=== PATIENT | female | born 1950 | race African-American/Black ===

== ENCOUNTER 2018-01-14 17:38 | Inpatient (IN) | payer MEDICARE, OTHER ==
[~2018-01-14 17:38] MED LIST: Heparin 1,000 UNITS/ML VIAL ONE; Heparin 10,000 UNITS/ 10 ML VIAL ONE
[2018-01-14 18:07] LABS: CO2 Tension 31.4 mmHg (35.0-45.0); pH, Arterial 7.35 (7.35-7.45)
[2018-01-14 18:07] LABS: Base Excess-Venous -8.5 mmol/L (0 (+/- 2.5)); CO2 Tension (PvCO2) 39.9 mmHg (41.0-51.0); Calcium, Ionized 1.08 mmol/L (1.12-1.32); Hemoglobin - Calc 13.9 g/dL (12.0-18.0); Lactate 3.13 mmol/L (0.50-2.20); O2 Tension (PvO2) 53.1 mmHg (35.0-45.0); Potassium 6.7 mmol/L (3.4-4.7); T. Carbon Dioxide 19.2 mmol/L (1.0-85.0); pH (Venous) 7.263 (7.35-7.45); vO2 Saturation-calc 82.2 % (94-98)
[2018-01-14 18:08] LABS: Actual Bicarbonate (HCO3a) 17.1 mEq/L (22-26); Base Excess (BEa) -7.5 mEq/L (0 (+/-) 2.5); Carboxyhemoglobin (COHb) 1.8 gm% (0.0-3.0); Hematocrit-ABG 38.5 % (36.0-47.0); Hemoglobin (Hb) 10.6 g/dL (12.0-16.0); O2 Tension (PaO2) 285.4 mmHg (80.0-100.0)
[2018-01-14 18:09] LABS: Analyzer IN Cardio ER; Calcium, Ionized 1.2 mmol/L (1.12-1.30); Potassium - ABG Lab 6.3 mmol/L (3.70-5.30); Puncture Site LRA
--- NOTE | 2018-01-14 18:53 | CT ---
CT BRAIN WITHOUT CONTRAS: 01/14/18 HISTORY: Altered mental status, stage IV lung cancer. FINDINGS: Comparison is made with the exam of 09/16/15. No evidence of acute infarct, hemorrhage, midline shift or abnormal extra-axial fluid collections are seen. The ventricular size is normal and the basilar cisterns patent. There is a small focal area of decreased attenuation in the posterior aspect of the right frontal lobe close to the vertex which wa s not seen on the previous study. The possibility of this demonstrating a metastatic focus cannot be excluded. The bony calvarium is intact. IMPRESSION: 1. No CT evidence of acute intracranial process. 2. Further evaluation with MRI of the brain with and without IV contrast would be helpful to joana luate for metastatic disease. POS: [facility]
[2018-01-14] MEDS ORDERED: Fentanyl 100 MCG/2 ML VIAL ONE (19:27)
[2018-01-14] MEDS ORDERED: Midazolam HCl 5 mg/ml Vial ONE (19:30)
[2018-01-14] MEDS ORDERED: Albuterol Sulfate 2.5 mg/3 ml Neb ONE ×2 (20:05→20:09)
--- NOTE | 2018-01-14 20:12 | PDOC.FPRHP ---
- History of Present Illness Chief Complaint: Respiratory Failure History of Present Illness: 67 yo female presents from transferring from an outside facility. She was intubated at the outside facility and has been unconscious since that time. Family is in the room from out of state and can't provide much history. They state she was weak, but able to have a conversation yesterday. She never complained of pain, but did mention yesterday she began being more SOB. Today, her SOB acutely worsened and she was intubated and sent here. No other history is able to be obtained. ED Course: Heparin Drip Levophed Drip D50W Insulin Fentanyl Versed Rocephin - Allergies/Adverse Reactions Allergies Allergy/AdvReac Type Severity Reaction Status Date / Time No Known Allergies Allergy Unverified 01/14/18 20:32 - Home Medications Comments: Patient is not able to provide medication history. Family will be bringing updated medication list from home. Will be completed in future. - History PMHx: Glaucoma, Cataracts, HTN, Stage IV Breast Cancer PSHx: Cholecystectomy, Hysterectomy, Mastectomy FHx: Non contributory Social: No alcohol, Tobacco, or Drug history - Review of Systems ROS unobtainable: due to endotracheal tube Respiratory: reports: shortness of breath - Vital signs BP: [81/63] HR: [96] RR: [14] Tmax: [99.2] Pox: [98]% on [Vent] Wt: [120 kg] - Physical Exam -Constitutional: Intubated. Unconscious Neck: trachea midline Heart: RRR -Heart: Anasarca present & 2+ pitting edema bilaterally up to knees. -Lungs: Intubated on ventilator Abdomen: soft, non-tender, bowel sounds present, no masses/distention Musculoskeletal: normal structure -Neurological: Unconscious, Non-responsive. no withdrawl to pain. + cough, gag reflux. Skin: no rash/lesions -Psychiatric: Intubated and Unconscious FMR H&P: Results - Labs Result Diagrams: 01/14/18 20:15 01/14/18 20:15 Lab results: ABG pH 7.35 (7.35-7.45) 01/14/18 17:55 ABG pCO2 31.4 mmHg (35.0-45.0) L 01/14/18 17:55 ABG pO2 285.4 mmHg (80.0-100.0) H 01/14/18 17:55 VBG pCO2 39.9 mmHg (41.0-51.0) L 01/14/18 18:03 VBG pO2 53.1 mmHg (35.0-45.0) H 01/14/18 18:03 - EKG Interpretation EKG: Sinus Tachycardia FMR H&P: A/P - Problem List (1) Acute respiratory failure with hypoxia Current Visit: Yes Status: Acute Code(s): J96.01 - ACUTE RESPIRATORY FAILURE WITH HYPOXIA (2) Encephalopathy acute Current Visit: Yes Status: Acute Code(s): G93.40 - ENCEPHALOPATHY, UNSPECIFIED (3) Acute renal failure Current Visit: Yes Status: Acute (4) Hyperkalemia Current Visit: Yes Status: Acute Code(s): E87.5 - HYPERKALEMIA (5) Elevated bilirubin Current Visit: Yes Status: Acute Code(s): R17 - UNSPECIFIED JAUNDICE (6) Shock liver Current Visit: Yes Status: Acute Code(s): K72.00 - ACUTE AND SUBACUTE HEPATIC FAILURE WITHOUT COMA (7) Lactic acidosis Current Visit: Yes Status: Acute Code(s): E87.2 - ACIDOSIS (8) Pulmonary embolism Current Visit: Yes Status: Acute Code(s): I26.99 - OTHER PULMONARY EMBOLISM WITHOUT ACUTE COR PULMONALE (9) Stage IV carcinoma of breast Current Visit: Yes Status: Acute Code(s): C50.919 - MALIGNANT NEOPLASM OF UNSP SITE OF UNSPECIFIED FEMALE BREAST (10) Septic shock Current Visit: Yes Status: Acute Code(s): A41.9 - SEPSIS, UNSPECIFIED ORGANISM; R65.21 - SEVERE SEPSIS WITH SEPTIC SHOCK (11) Normocytic anemia Current Visit: Yes Status: Acute Code(s): D64.9 - ANEMIA, UNSPECIFIED - Plan (1) Acute respiratory failure with hypoxia - Intubated on ventilator Rate 12, Vt 500, O2 100% PEEP 8 - Consulted Pulm appreciate recs - ABG in AM - ET care (2) Encephalopathy acute - Unknown etiology - Continue Supportive care (3) Acute renal failure - Dr. Rodriguez, Nephro, consulted appreciate recs - Emergent Dialysis planned tonight (4) Hyperkalemia - Emergent Dialysis - Insulin & D50w given in ER - Monitor CMP (5) Elevated bilirubin - Likely 2/2 to Shock liver - Monitor CMP (6) Shock liver - 2/2 to Septic shock - Monitor CMP (7) Lactic acidosis - initial 3.3 - unable to initiate IVF at this time due to volume status - Repeat pending (8) Pulmonary embolism - Suspected from History - Heparin protocol (9) Stage IV carcinoma of breast - Request records from Dr. Luna [phone] (10) Septic shock - ICU admission - Vanc and Zosyn 01/14 - Pharmacy to dose antibiotics - Levophed drip - Hold IVF until fluid status improves (11) Normocytic anemia - Monitor CBC CODE STATUS: FULL CODE Disposition: Guarded, Will admit to ICU. FMR H&P: Upper Level - Plan Date/Time: 01/14/182009 Vane Goodwin, PGY3, have evaluated this patient and agree with findings/plan as outlined by internet security specialist resident. Pertinent changes/additions are listed here. This is a 67yo AAF w/ PMH Stage IV breast cancer with mets to lungs, presents w / Acute hypoxic respiratory failure s/p intubation in outside ER and transferred here. PE: Gen: Patient is not responsive, not currently on sedation, Anasarca HEENT: intubated. CV: Sinus Tachycardic, + JVD. Resp: On ventilator. Course breath sounds. Ext: +2 pitting edema extremities bilaterally UE and LE Neuro: Non-responsive. no withdrawl to pain. + cough, gag reflux. A/P: 1) Acute hypoxic respiratory failure - Pulmonology consulted. Currently on ventilator. Possibly 2/2 pulmonary embolism, however unable to CTA chest due to ARF. Will treat with Heparin ggt. Consider CTA if kidney function improves. 2) Stage IV Breast Cancer with mets to lungs - possible mets to brain. Will AFR - Dr. Rodriguez consulted and will perform emergent dialysis 3) Lactic acidosis - repeat in am. Fluids 4) Hyperkalemia - given Albuterol, D5 IVP, Novolin 10U IVP, 1amp Sodium Bicarb, Fentanyl 100mcg, Versed 5mg IVP. Dr. Rodriguez consulted. 5) Leukocytosis - Vanc, Zosyn, f/u with CBC in am. 6) Normocytic anemia - f/u with CBC in am. FOBT, iron studies in am. 7) Metabolic acidosis - Repeat CMP in am. 8) Elevated liver enzymes - Repeat CMP. 9) Elevated cardiac enzymes - repeat CE x3. on heparin ggt. Repeat EKG in am. 10) Septic shock - fluids, Vanc, Zosyn. Levophed. 11) Encephalopathy - Unsure of etiology. F/u with MRI in am if can tolerate it. Very poor prognosis. Attending Addendum - Attending Addendum Date/Time: 01/14/183 I personally evaluated the patient and discussed the management with Dr. Garces I agree with the History, Examination, Assessment and Plan documented above with any addition or exceptions noted below. 67 yo AAF with known stage 4 lung carcinoma brought to [facility] ER s/p respiratory arrest transferred here intubated unresponsive non sedated with multi-organ failure on levophed for diaylsis tonight. Exam marked anasarca,no purposeful movement, pupils sluggish occasional coughing and tolerating vent without sedation. Prognosis grave, family aware appreciate Critical Care and Nephrology consultation for management.
[2018-01-14] MEDS ORDERED: Dextrose 50% Abboject 50 ML SYRINGE ONE ×2 (20:26→20:29)
[2018-01-14] MEDS ORDERED: Insulin Regular 300 UNITS/3 ML VIAL ONE (20:26)
[2018-01-14] MEDS ORDERED: Calcium Chloride 1 GM/10 ML Abboject SYRINGE ONE ×2 (20:26→20:51)
[2018-01-14 20:33] LABS: INR-International Normal Ratio 1.4; PTT 27.2 SEC (22.9-36.1); Prothrombin Time 17.5 SEC (12.0-14.7)
[2018-01-14] MEDS ORDERED: Norepinephrine 8 MG in Sodium Chloride 0.9% 250 ML 250 ML IVPB PRN ×2 (20:33→21:19)
[2018-01-14 20:39] LABS: Hemoglobin 10.2 g/dL (12.0-16.0); Mean Corpuscular HGB CONC 32.4 g/dL (32.0-36.0); Mean Corpuscular Hemoglobin 28.2 pg (27.0-31.0); Mean Corpuscular Volume 87.1 fl (81.0-99.0); Mean Platelet Volume 7.7 fL (7.4-10.4); Platelet Count 384 thou/uL (130-400); RBC Distribution Width 20.5 % (11.5-14.5); Red Blood Cell (RBC) Count 3.63 mill/uL (4.20-5.40); White Blood Cell (WBC) Count 16.3 thou/uL (4.8-10.8)
[2018-01-14] MEDS ORDERED: Heparin 10,000 UNITS/ 10 ML VIAL SLOW IVP SCH ×2 (20:45→21:19)
[2018-01-14] MEDS ORDERED: Heparin 25,000 units/D5W 500 ML IV SCH (20:45)
[2018-01-14 20:49] LABS: ALT (SGPT) 97 U/L (8-55); AST (SGOT) 332 U/L (5-34); Albumin 2.7 g/dL (3.4-4.8); Alkaline Phosphatase 1448 U/L (40-150); Anion Gap 25 mmol/L (10-20); Bilirubin, Total 5.1 mg/dL (0.2-1.2); Calc. Creatinine Clearance 0 mL/min (70-130); Calcium 8.8 mg/dL (7.8-10.44); Carbon Dioxide 17 mmol/L (23-31); Chloride 99 mmol/L (98-107); Estimated GFR-MDRD 8; Globulin 3.6 g/dL (2.4-3.5); Glucose 78 mg/dL (80-115); Potassium 6.5 mmol/L (3.5-5.1); Protein, Total 6.3 g/dL (6.0-8.3); Sodium 134 mmol/L (136-145)
[2018-01-14] MEDS ORDERED: Heparin 25,000 units/D5W 500 ML ONE (20:50)
[2018-01-14] MEDS ORDERED: Heparin 1,000 UNITS/ML VIAL ONE (20:53)
[2018-01-14] MEDS ORDERED: Heparin 5,000 UNITS/ML VIAL ONE (20:54)
[2018-01-14 21:00] LABS: BUN (Urea Nitrogen) 132 mg/dL (9.8-20.1); CKMB 5.3 ng/mL (0-6.6)
[2018-01-14] MEDS ORDERED: Ventilator Sedation Protocol 1 EACH FS SCH (21:19)
[2018-01-14] MEDS ORDERED: Ondansetron PF 4 MG/2 ML Vial IVP PRN (21:19)
[2018-01-14] MEDS ORDERED: Vancomycin HCl 1 GM in Premix Bag 1 BAG IVPB SCH (21:19)
[2018-01-14] MEDS ORDERED: fentaNYL Citrate/PF 2,000 MCG in Sodium Chloride 0.9% 60 ML IV SCH (21:24)
[2018-01-14] MEDS ORDERED: DISCONTINUE PREVIOUS NARCOTIC PAIN MEDICATIONS AND BENZODIAZEPINES FS SCH (21:24)
[2018-01-14] MEDS ORDERED: Fentanyl BOLUS 250 ML IVPB PRN (21:24)
[2018-01-14] MEDS ORDERED: Lorazepam 2 MG/ML VIAL SLOW IVP PRN (21:24)
[2018-01-14] MEDS ORDERED: Propofol BOLUS 1,000 MG/100 ML VIAL IV PRN (21:24)
[2018-01-14] MEDS ORDERED: Morphine 4 MG/ML VIAL SLOW IVP PRN (21:24)
[2018-01-14] MEDS ORDERED: Famotidine 40 MG/4 ML VIAL SLOW IVP SCH (21:30)
[2018-01-14 21:33] LABS: Anisocytosis SLIGHT = 6-15 cells (100X) (0-5/hpf); Eosinophils 1 % (0-10); Hypochromia SLIGHT = 6-15 cells (100X) (0-5/hpf); Lymphocytes 6 % (21-51); MDiff Complete? YES; Monocytes 4 % (0-10); Neutrophil 89 % (42-75); PLT Morphology Comment Appears Adequate
[2018-01-14] MEDS ORDERED: ZOSYN IVPB PRN ×2 (21:35→21:36)
[2018-01-14] MEDS ORDERED: VANC IVPB PRN ×2 (21:35→21:36)
[2018-01-14] MEDS ORDERED: Piperacillin/Tazobactam 2.25 GM in Sodium Chloride 0.9% 100 ML IVPB SCH ×2 (21:45→23:59)
[2018-01-14 22:59] LABS: Hemoglobin 10.3 g/dL (12.0-16.0); Platelet Count 387 thou/uL (130-400)
[2018-01-14 23:41] LABS: Lactic Acid 4.2 mmol/L (0.5-2.2)
--- NOTE | 2018-01-14 23:45 | PDOC.EVN ---
Event Note - Event Note Event Note: Family made joint decision to make patient a DNR. Patient's family members included a brother, sister, and nephew. Patient had previously signed a DNR form , but did not have the form totally completed and filed. They stated that her wishes were well known to the family. They have decided to continue treatment as is for now. They are willing to make treatment changes if her condition deteriorates. Order has been changed to DNR in computer. Her prognosis is guarded and she will continue to be monitored very closely.
[2018-01-15 00:16] LABS: Lactic Acid 2.7 mmol/L (0.5-2.2)
[2018-01-15 00:31] LABS: Troponin I 0.056 ng/mL (< 0.028)
--- NOTE | 2018-01-15 01:38 | CON ---
DATE OF CONSULTATION: 01/14/2018 SERVICE: Renal medicine. HISTORY OF PRESENT ILLNESS: Ms. Barnard is a 67-year-old black female who was initially seen at [facility] ER for mental status change. At that time , patient went into acute respiratory arrest. She was intubated and placed on ventilator support. She was found to be in acute kidney injury with hyperkalemia. Conservative management for the hyperkalemia had been done. She will be receiving D50 with insulin. In addition, I have ordered calcium gluconate. I would be doing an emergency dialysis on this patient. She had right opacification of the right lung field. Left lung was said to be clear. I did discuss the case with the family. A nephew and sister, they want to proceed with full treatment, which includes dialysis. REVIEW OF SYSTEMS: History of decreased appetite, decreased energy level. Positive for loss of consciousness. No fever or chills. Positive for shortness of breath, no diarrhea, no constipation. Appetite decreased, energy level is decreased. No abdominal pain. HOME MEDICATIONS: Based on the ER report from [facility] failed to show any current medications. This patient was previously on hospice. PAST MEDICAL HISTORY: 1. History of breast cancer with metastasis to the lungs. 2. History of hypertension?. PAST SURGICAL HISTORY: Includes, breast biopsy, eye surgery, status post cholecystectomy, status post mastectomy bilateral breast. SOCIAL HISTORY: Patient lives in [place]. She lives alone, not , no children. Previously smoked. No alcohol. Sedentary lifestyle. Previously on hospice, but this has been revoked by her sister and nephew. ALLERGIES: No known drug allergies. TRAUMA: None. IMMUNIZATIONS: Unknown. HOSPITALIZATIONS: Please see past medical history. FAMILY HISTORY: Noncontributory. PHYSICAL EXAMINATION: VITAL SIGNS: Blood pressure is 86/40 with a heart rate of 70, pulse ox is 100%. GENERAL: Patient is unresponsive, intubated on ventilator support. SKIN: Adequate turgor, morbidly obese. HEENT: She has pinkish conjunctivae, anicteric sclerae. NECK: No neck mass, no carotid bruits, no JVD. CHEST: No deformities. LUNGS: Decreased breath sounds, no wheezing, no crackles. HEART: Normal sinus rhythm. No murmur, no gallops or rubs. ABDOMEN: Globular, soft, nontender. EXTREMITIES: Positive for edema. NEUROLOGIC: Patient is unresponsive. LABORATORY: On 01/14/2018, white count 19.2, hemoglobin 11.1. Sodium 136, potassium 7.8, chloride 98, carbon dioxide 17, BUN 128, creatinine 6.71. AST 374, ALT 115, alkaline phosphatase 1605, albumin 2.9. Repeat potassium shows value of 6.7. Chest x-ray of 01/14/2018 showed opacification of the right lung. Left lung was reported as clear. CT scan of the brain 01/14/2018, no acute intracranial findings. ASSESSMENT AND PLAN: 1. Acute kidney injury with hyperkalemia, unclear etiology. The possibility of acute tubular necrosis remains with this patient. Due to the hyperkalemia and significant increase in the BUN and creatinine, my bias is to initiate dialysis. I did discuss with the family about proceeding dialysis and I agreed with this. We will do a 1.5-hour hemodialysis with this patient. Fluid removal only as tolerated by the patient. We will use a 1-0 potassium bath in view of the hyperkalemia. If needed, we can arrange for renal ultrasound in a.m. My plan is to again repeat the dialysis tomorrow for 2 -1/2 hours. 2. Hypotension, currently patient will be initiated on pressor support. Overall, prognosis remains poor. MTDD
[2018-01-15 02:33] LABS: Hep B Surf Ag NonReactive S/CO (NonReactive)
[2018-01-15 03:51] LABS: ALT (SGPT) 98 U/L (8-55); AST (SGOT) 355 U/L (5-34); Albumin 2.6 g/dL (3.4-4.8); Alkaline Phosphatase 1407 U/L (40-150); Anion Gap 20 mmol/L (10-20); BUN (Urea Nitrogen) 97 mg/dL (9.8-20.1); Bilirubin, Total 5.1 mg/dL (0.2-1.2); Calc. Creatinine Clearance 22 mL/min (70-130); Calcium 8.5 mg/dL (7.8-10.44); Carbon Dioxide 21 mmol/L (23-31); Chloride 102 mmol/L (98-107); Estimated GFR-MDRD 11; Globulin 3.8 g/dL (2.4-3.5); Glucose 124 mg/dL (80-115); Potassium 4.5 mmol/L (3.5-5.1); Protein, Total 6.4 g/dL (6.0-8.3); Sodium 138 mmol/L (136-145)
[2018-01-15] MEDS: Norepinephrine 8 MG in Sodium Chloride 0.9% 250 ML 250 ML IVPB PRN ×4 (03:53→21:33)
[2018-01-15 03:55] LABS: Troponin I 0.056 ng/mL (< 0.028)
[2018-01-15 04:14] LABS: Band 11 % (5-11); Hemoglobin 10.5 g/dL (12.0-16.0); Lymphocytes 4 % (21-51); MDiff Complete? YES; Mean Corpuscular HGB CONC 33.1 g/dL (32.0-36.0); Mean Corpuscular Hemoglobin 28.9 pg (27.0-31.0); Mean Corpuscular Volume 87.3 fl (81.0-99.0); Mean Platelet Volume 7.7 fL (7.4-10.4); Monocytes 4 % (0-10); Neutrophil 81 % (42-75); Platelet Count 402 thou/uL (130-400); RBC Distribution Width 20.9 % (11.5-14.5); Red Blood Cell (RBC) Count 3.63 mill/uL (4.20-5.40); White Blood Cell (WBC) Count 23.3 thou/uL (4.8-10.8)
[2018-01-15 04:34] LABS: PTT Greater than 250.0 SEC (22.9-36.1)
[2018-01-15] MEDS: Piperacillin/Tazobactam 2.25 GM in Sodium Chloride 0.9% 100 ML IVPB SCH ×4 (05:16→23:34)
--- NOTE | 2018-01-15 07:03 | PDOC.FM ---
- Subjective Subjective: Patient has made small improvements, mostly in mentation overnight. she is waking spontaneously. She has had very poor urine output. she does say that the tube is causing her discomfort but she is not breathing on her own hardly at all. She is only on levophed drip. - Objective MAR Reviewed: Yes Vital Signs & Weight: Vital Signs (12 hours) Temp Pulse Resp BP Pulse Ox 01/15/18 06:00 13 01/15/18 04:00 98 F 12 01/15/18 03:30 122 H 133/42 L 01/15/18 02:00 12 01/15/18 01:00 98.8 F 01/15/18 00:48 123 H 12 97 01/15/18 00:00 13 01/14/18 22:15 98.8 F 125 H 12 96 01/14/18 22:00 12 01/14/18 21:50 135 H 109/46 L 01/14/18 21:19 95 Weight Weight 119 kg Most Recent Monitor Data Heart Rate from ECG 125 NIBP 90/35 NIBP BP-Mean 69 Respiration from ECG 12 SpO2 98 I&O: 01/14/18 01/15/18 01/16/18 06:59 06:59 06:59 Intake Total 1223 Balance 1223 Result Diagrams: 01/15/18 03:10 01/15/18 03:10 EKG Reviewed by me: Yes Radiology Reviewed by me: Yes <Jim Fraire - Last Filed: 01/15/18 11:33> - Objective Vital Signs & Weight: Vital Signs (12 hours) Temp Pulse Resp BP Pulse Ox 01/15/18 12:31 131 H 01/15/18 10:39 124 H 01/15/18 10:00 23 H 01/15/18 08:00 98.5 F 127 H 12 98 01/15/18 07:06 125 H 87/33 L 01/15/18 06:00 13 01/15/18 04:00 98 F 12 01/15/18 03:30 122 H 133/42 L Weight Weight 119 kg Most Recent Monitor Data Heart Rate from ECG 131 NIBP 101/57 NIBP BP-Mean 87 Respiration from ECG 23 SpO2 97 I&O: 01/14/18 01/15/18 01/16/18 06:59 06:59 06:59 Intake Total 1223 Output Total 0 Balance 1223 0 Result Diagrams: 01/15/18 03:10 01/15/18 03:10 <Donavan Lewis - Last Filed: 01/15/18 14:37> Phys Exam - Physical Examination Constitutional: NAD intubated, eye open, moving minimally HEENT: PERRLA, sclera anicteric tube at 22 at lip not moving neck but passive motion is intact loud rales and crackles hear R more than left tachycardic, no murmur heard. Gastrointestinal: soft, non-tender, no distention, positive bowel sounds 3+ pitting edema in arms and hands. 1+ in lower legs spontaneous eye opening, moves fingers on command, poor air commodore strenght bilat Deviation from normal: calm, not on sedation Skin: no rash <Jim Fraire - Last Filed: 01/15/18 11:33> Dx/Plan (1) Acute respiratory failure with hypoxia Code(s): J96.01 - ACUTE RESPIRATORY FAILURE WITH HYPOXIA Status: Acute (2) Acute renal failure Status: Acute QualifierTitle: Acute renal failure type: with acute tubular necrosis Qualified Code(s): N17.0 - Acute kidney failure with tubular necrosis (3) Elevated bilirubin Code(s): R17 - UNSPECIFIED JAUNDICE Status: Acute (4) Encephalopathy acute Code(s): G93.40 - ENCEPHALOPATHY, UNSPECIFIED Status: Acute (5) Hyperkalemia Code(s): E87.5 - HYPERKALEMIA Status: Resolved (6) Lactic acidosis Code(s): E87.2 - ACIDOSIS Status: Acute (7) Normocytic anemia Code(s): D64.9 - ANEMIA, UNSPECIFIED Status: Chronic (8) Pulmonary embolism Code(s): I26.99 - OTHER PULMONARY EMBOLISM WITHOUT ACUTE COR PULMONALE Status : Acute (9) Septic shock Code(s): A41.9 - SEPSIS, UNSPECIFIED ORGANISM; R65.21 - SEVERE SEPSIS WITH SEPTIC SHOCK Status: Acute (10) Shock liver Code(s): K72.00 - ACUTE AND SUBACUTE HEPATIC FAILURE WITHOUT COMA Status: Acute (11) Stage IV carcinoma of breast Code(s): C50.919 - MALIGNANT NEOPLASM OF UNSP SITE OF UNSPECIFIED FEMALE BREAST Status: Chronic QualifierTitle: Laterality: right Qualified Code(s): C50.911 - Malignant neoplasm of unspecified site of right female breast - Plan Plan: (1) Acute respiratory failure with hypoxia - Intubated on ventilator Rate 12, Vt 500, O2 100% PEEP 8 - Consulted Pulm appreciate recs AGB pending but oxygenation and ventilation seemed appropriate. (2) Encephalopathy acute - seems likely related to cardio respiratory issues vs uremia. continue treatment for those (3) Acute renal failure - Dr. Rodriguez, Nephro, consulted appreciate recs dialysis was done yesterday and planned again today. was affective yesterday for renal markers (4) Hyperkalemia - resolved on todays readin (5) Elevated bilirubin - Likely 2/2 to Shock liver - LFTs stable (6) Shock liver - 2/2 to Septic shock - Monitor CMP (7) Lactic acidosis - downtredning but i think patient is still intravascularly depleted and needs gentle fluids. adding now. (8) Pulmonary embolism - Suspected from History and still leading diagnosis from risk factors. - Heparin protocol (9) Stage IV carcinoma of breast - Request records from Dr. Luna [phone] (10) Septic shock - ICU admission - [facility] cynthia Correia 01/14 - Pharmacy to dose antibiotics - Levophed drip - start gentle IV fluids. patient needing dialysis and is having minimal UOP. considered bolus but will choose gentle fluids instead for now. (11) Normocytic anemia - Monitor CBC CODE STATUS: DNR Disposition: Guarded <Jim Fraire - Last Filed: 01/15/18 11:33> (1) Acute respiratory failure with hypoxia Code(s): J96.01 - ACUTE RESPIRATORY FAILURE WITH HYPOXIA Status: Acute (2) Encephalopathy acute Code(s): G93.40 - ENCEPHALOPATHY, UNSPECIFIED Status: Acute (3) Acute renal failure Status: Acute Qualifiers: Acute renal failure type: with acute tubular necrosis Qualified Code(s): N17.0 - Acute kidney failure with tubular necrosis (4) Hyperkalemia Code(s): E87.5 - HYPERKALEMIA Status: Resolved (5) Elevated bilirubin Code(s): R17 - UNSPECIFIED JAUNDICE Status: Acute (6) Shock liver Code(s): K72.00 - ACUTE AND SUBACUTE HEPATIC FAILURE WITHOUT COMA Status: Acute (7) Lactic acidosis Code(s): E87.2 - ACIDOSIS Status: Acute (8) Pulmonary embolism Code(s): I26.99 - OTHER PULMONARY EMBOLISM WITHOUT ACUTE COR PULMONALE Status : Acute (9) Stage IV carcinoma of breast Code(s): C50.919 - MALIGNANT NEOPLASM OF UNSP SITE OF UNSPECIFIED FEMALE BREAST Status: Chronic Qualifiers: Laterality: right Qualified Code(s): C50.911 - Malignant neoplasm of unspecified site of right female breast (10) Septic shock Code(s): A41.9 - SEPSIS, UNSPECIFIED ORGANISM; R65.21 - SEVERE SEPSIS WITH SEPTIC SHOCK Status: Acute (11) Normocytic anemia Code(s): D64.9 - ANEMIA, UNSPECIFIED Status: Chronic <Donavan Lewis - Last Filed: 01/15/18 14:37> Attending Addendum - Attending Addendum Date/Time: 01/15/18 1432 I personally evaluated the patient and discussed the management with Dr. Fraire I agree with the History, Examination, Assessment and Plan documented above with any addition or exceptions noted below. Correction with additional history Breast CA with metastasis to lung and questionable brain. Patient has improved since admission marked third spacing of fluids, treatment presumed for PE and coverage for pna , ARF for diaylsis per Nephrology. 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 <Donavan Lewis - Last Filed: 01/15/18 14:37>
[2018-01-15 07:39] LABS: PTT 138.8 SEC (22.9-36.1)
--- NOTE | 2018-01-15 08:29 | RAD ---
PORTABLE CHEST: DATE: 01/15/18. PROVIDED CLINICAL HISTORY: Respiratory insufficiency. FINDINGS: Comparison is made with the study dated 01/14/18. Significant interval change with respect to the doc or examination was not apparent. IMPRESSION: As above. POS: [facility]
[2018-01-15] MEDS ORDERED: Heparin 1,000 UNITS/ML VIAL ONE (11:11)
[2018-01-15] MEDS ORDERED: Sodium Chloride 0.9% 1,000 ML IV SCH (11:45)
[2018-01-15] MEDS: Propofol 1,000 MG/100 ML VIAL IV PRN (15:00)
[2018-01-15] MEDS: Heparin 25,000 units/D5W 500 ML IVPB SCH (15:08)
[2018-01-15] MEDS ORDERED: Adenosine 6 MG/2 ML VIAL IVP SCH ×3 (15:30→16:30)
--- NOTE | 2018-01-15 15:43 | PDOC.EVN ---
Event Note - Event Note Event Note: Patient was near the end of dialysis when she became more hypotensive, had HR in the 200s that was irregular, narrow complex. We suspected Afib with RVR and we performed synchronized cardioversion x2 because first had no affect. Patient had a easily palpable pulse. rhythm became regular and was SVT. Adenosine 6 was given as a bolus which caused patient to resume back into sinus tachycardia. I attempted to call two available numbers on chart to notify family of event and overall decline but could not reach them.
[2018-01-15] MEDS: Amiodarone HCl 450 MG, Admixture Fee 1 EACH in Dextrose 5% in Water 250 ML IVPB SCH ×2 (15:50→21:27)
[2018-01-15 15:55] LABS: PTT Greater than 250.0 SEC (22.9-36.1)
[2018-01-15] MEDS ORDERED: Amiodarone HCl 150 MG, Admixture Fee 1 EACH in Dextrose 5% in Water 100 ML IVPB SCH (16:30)
[2018-01-15] MEDS ORDERED: Adenosine 6 MG/2 ML VIAL ONE (17:08)
--- NOTE | 2018-01-15 17:32 | PDOC.EVN ---
Event Note - Event Note Event Note: Patient had two further episodes of SVT requiring 2 doses of 12 of adenosine, which did resolve SVT. I spoke with family and described the situation and how she was continuing to have these dangerous rhythms despite the adenosine and amiodarone. Her blood pressure was also declining despite adding vasopressin to her regimen. They felt that in addition to her DNR status she would not want further chemical or electrical cardioversion. At this time they have decided to gather more family before transitioning to comfort care only.
[2018-01-15 18:14] LABS: PTT 249.5 SEC (22.9-36.1)
[2018-01-15] MEDS ORDERED: Heparin 10,000 UNITS/ 10 ML VIAL SLOW IVP SCH (19:33)
--- NOTE | 2018-01-15 19:49 | ULT ---
GALLBLADDER ULTRASOUND: History: Septic shock. Elevated GET. FINDINGS: The liver demonstrates diffuse heterogeneous echotexture with suggestion of numerous masses suspiciou s for metastatic disease. The patient is post cholecystectomy. The common duct measures [address] The pancreas is not visualized. The right kidney is poorly visualized but shows no evidence of h ydronephrosis. No free fluid is seen. IMPRESSION: 1. Diffusely heterogeneously liver with findings suggestive of multiple metastases. 2. Status post cholecystectomy. POS: [facility]
--- NOTE | 2018-01-15 19:51 | ULT ---
BILATERAL RENAL ULTRASOUND: History: Atrial fibrillation. Renal failure. Patient is on ventilator. FINDINGS: The kidneys are not well visualized. Muro catheter is present in the bladder. The kidneys are not sa tisfactory visualized due to patient being on ventilator and inability to roll. There is a Muro catheter seen in the urinary bladder. POS: [facility]
[2018-01-15] MEDS: Sodium Chloride 0.9% 1,000 ML IV SCH ×2 (19:57→23:32)
[2018-01-15] MEDS: Famotidine 40 MG/4 ML VIAL SLOW IVP SCH (21:35)
[2018-01-15 23:40] LABS: Vancomycin, Random 17.8 ug/mL (See Comment)
[2018-01-15] MEDS ORDERED: Vancomycin HCl 750 MG in Sodium Chloride 0.9% 250 ML 250 ML IVPB SCH (23:59)
[2018-01-16] MEDS: Propofol 1,000 MG/100 ML VIAL IV PRN ×3 (00:20→21:41)
[2018-01-16] MEDS: Norepinephrine 8 MG in Sodium Chloride 0.9% 250 ML 250 ML IVPB PRN ×4 (01:43→20:51)
[2018-01-16 05:34] LABS: PTT Greater than 250.0 SEC (22.9-36.1)
[2018-01-16] MEDS: Piperacillin/Tazobactam 2.25 GM in Sodium Chloride 0.9% 100 ML IVPB SCH ×4 (05:58→23:57)
[2018-01-16] MEDS: Sodium Chloride 0.9% 1,000 ML IV SCH ×2 (05:58→12:40)
--- NOTE | 2018-01-16 08:24 | PDOC.FM ---
- Subjective Subjective: Pt seen at bedside in NAD. Intubated and sedated. RICHARD overnight, pt continues to be tachycardic. Swelling in all extremities, significantly worse in upper extremities and face. Requiring levophed and vasopressin but ventilator FiO2 just above room air. - Objective MAR Reviewed: Yes Vital Signs & Weight: Vital Signs (12 hours) Temp Pulse Resp BP Pulse Ox 01/16/18 06:52 107 H 102/57 L 01/16/18 06:00 25 H 01/16/18 04:00 98.8 F 22 H 01/16/18 02:41 111 H 112/48 L 01/16/18 02:00 22 H 01/16/18 00:29 118 H 20 100 01/16/18 00:00 99.2 F 21 H 01/15/18 22:39 121 H 117/72 01/15/18 22:00 19 Weight Weight 125 kg Most Recent Monitor Data Heart Rate from ECG 105 NIBP 111/52 NIBP BP-Mean 69 Respiration from ECG 22 SpO2 99 I&O: 01/15/18 01/16/18 01/17/18 06:59 06:59 06:59 Intake Total 1223 4349 Output Total 70 Balance 1223 4279 Result Diagrams: 01/16/18 07:46 01/16/18 07:46 <Neri Burns - Last Filed: 01/16/18 11:02> - Objective Vital Signs & Weight: Vital Signs (12 hours) Temp Pulse Resp BP Pulse Ox 01/16/18 10:21 106 H 124/38 L 01/16/18 08:55 107 H 111/52 L 01/16/18 08:00 98.4 F 01/16/18 06:52 107 H 102/57 L 01/16/18 06:00 25 H 01/16/18 04:00 98.8 F 22 H 01/16/18 02:41 111 H 112/48 L 01/16/18 02:00 22 H 01/16/18 00:29 118 H 20 100 01/16/18 00:00 99.2 F 21 H Weight Weight 125 kg Most Recent Monitor Data Heart Rate from ECG 105 NIBP 111/52 NIBP BP-Mean 69 Respiration from ECG 22 SpO2 99 I&O: 04/29/18 04/30/18 05/01/18 06:59 06:59 06:59 Intake Total 1223 4349 Output Total 70 0 Balance 1223 4279 0 Result Diagrams: 01/16/18 07:46 01/16/18 07:46 <KarolineNitza - Last Filed: 01/16/18 11:40> Phys Exam - Physical Examination Constitutional: NAD intubated and sedated HEENT: PERRLA 1+ edema to face coarse rhonchi worse on right Cardiovascular: no significant murmur tachycardic Gastrointestinal: soft, non-tender Musculoskeletal: edema present 3+ upper ext BL, 1+ lower ext BL <GrantNeri samaniego - Last Filed: 01/16/18 11:02> Dx/Plan (1) Acute respiratory failure with hypoxia Code(s): J96.01 - ACUTE RESPIRATORY FAILURE WITH HYPOXIA Status: Acute (2) Acute renal failure Status: Acute QualifierTitle: Acute renal failure type: with acute tubular necrosis Qualified Code(s): N17.0 - Acute kidney failure with tubular necrosis (3) Septic shock Code(s): A41.9 - SEPSIS, UNSPECIFIED ORGANISM; R65.21 - SEVERE SEPSIS WITH SEPTIC SHOCK Status: Acute (4) Lactic acidosis Code(s): E87.2 - ACIDOSIS Status: Acute (5) Shock liver Code(s): K72.00 - ACUTE AND SUBACUTE HEPATIC FAILURE WITHOUT COMA Status: Acute (6) Tachycardia Code(s): R00.0 - TACHYCARDIA, UNSPECIFIED Status: Acute (7) Stage IV carcinoma of breast Code(s): C50.919 - MALIGNANT NEOPLASM OF UNSP SITE OF UNSPECIFIED FEMALE BREAST Status: Chronic QualifierTitle: Laterality: right Qualified Code(s): C50.911 - Malignant neoplasm of unspecified site of right female breast - Plan Plan: 1. Acute respiratory failure with hypoxia - intubated and sedated - pulmonology recommendations greatly appreciated 2. Acute renal failure - nephrology on board, recommendations greatly appreciated - plan for HD today - resolution of hyperkalemia after initial round of HD - initial UA still uncollected as pt is anuric 3. Septic shock - pt still requiring levophed and vasopression for MAP > 65 - wean as tolerated - initial blood cultures show 2/2 positive for presumptive Corynebacterium. both blood cultures drawn from right fem central line - pt currently on broad spectrum vanc and zosyn, day 3 - likely consult ID for further recommendations on management - still no urine sample due to anuria, unclear etiology/source at this time 4. Presumed pulmonary embolus vs SVC syndrome - based on pt's initial presentation, treated for presumed PE but unable to tolerate CTA chest - based on pt's response to ventilatory support, PE unlikely cause of #1 - with recent worsening of pt's upper extremity and face swelling in contrast to lower extremities and location of metastases, consider SVC syndrome - CT chest with contrast ordered before HD today - continue to monitor PTT and titrate heparin gtt accordingly 5. Lactic acidosis - repeat this AM 6. Shock liver - likely secondary to #3, continue to trend 7. Tachycardia - pt had SVT on 01/15 and required electrical and chemical cardioversion - currently HR low 100-110s on amiodarone gtt 8. Stage IV carcinoma of breast - Request records from Dr. Luna [phone] - likely cause for elevated alkaline phosphatase disposition: Guarded. Family has agreed on DNR status. Will attempt to clarify goals of care, palliative care assistance greatly appreciated. Specialist recommendations greatly appreciated. Continue to monitor closely. <Neri Burns - Last Filed: 01/16/18 11:02> Attending Addendum - Attending Addendum Date/Time: 01/16/18 [id number] I personally evaluated the patient and discussed the management with Dr. Burns on 01/16/18. I agree with the History, Examination, Assessment and Plan documented above with any addition or exceptions noted below. Patient's pulmonary status improved on vent. 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 Will get CTA chest to evaluate further immediately prior to dialysis. Arrhythmia stable on amiodarone, currently sinus tachycardia. Blood cultures 2/2 corynebacterium both drawn from the same femoral line. On Zosyn, and unable to pull femoral line at this time due both to lack of IV access given SVC syndrome as well as PTT significantly elevated. Will discuss with Dr. Galarza. Family not present and per nursing has not been present since early yesterday. Plan at that time was to consider withdrawing care given patient's grave condition. Discussed case this morning with palliative care team for their assistance in getting us in contact with family again to assess their wishes and discuss plan further. <Nitza Ramey - Last Filed: 01/16/18 11:40>
[2018-01-16 08:27] LABS: PTT Greater than 250.0 SEC (22.9-36.1)
[2018-01-16 09:14] LABS: ALT (SGPT) 154 U/L (8-55); AST (SGOT) 648 U/L (5-34); Albumin 2.3 g/dL (3.4-4.8); Alkaline Phosphatase 1279 U/L (40-150); Anion Gap 25 mmol/L (10-20); BUN (Urea Nitrogen) 67 mg/dL (9.8-20.1); Bilirubin, Total 6.4 mg/dL (0.2-1.2); Calc. Creatinine Clearance 25 mL/min (70-130); Calcium 7.4 mg/dL (7.8-10.44); Carbon Dioxide 14 mmol/L (23-31); Chloride 101 mmol/L (98-107); Estimated GFR-MDRD 12; Globulin 3.6 g/dL (2.4-3.5); Glucose 99 mg/dL (80-115); Potassium 4.8 mmol/L (3.5-5.1); Protein, Total 5.9 g/dL (6.0-8.3); Sodium 135 mmol/L (136-145)
[2018-01-16 09:43] LABS: Hemoglobin 9.3 g/dL (12.0-16.0); Mean Corpuscular HGB CONC 31.3 g/dL (32.0-36.0); Mean Corpuscular Hemoglobin 28.2 pg (27.0-31.0); Mean Corpuscular Volume 90.3 fl (81.0-99.0); Mean Platelet Volume 7.6 fL (7.4-10.4); Platelet Count 342 thou/uL (130-400); Red Blood Cell (RBC) Count 3.29 mill/uL (4.20-5.40); White Blood Cell (WBC) Count 27.9 thou/uL (4.8-10.8)
--- NOTE | 2018-01-16 10:32 | PRG ---
DATE OF SERVICE: 01/16/2018 SUBJECTIVE: Ms. Barnard is a 67-year-old black female who was admitted due to an acute respiratory failure and was found to be in acute kidney injury. Hemodialysis has been initiated. She received 2 -hour hemodialysis yesterday with minimal fluid removal. However, she did not tolerate the dialysis, became tachycardic. She is currently on pressor support with vasopressin and Levophed. Please note this patient has a known diagnosis of breast cancer with metastasis to the lungs. She wa s previously on hospice and this was changed by her nephew and her sister. PHYSICAL EXAMINATION: VITAL SIGNS: Blood pressure is currently at 111/52, heart rate 107, respiratory rate is 22, pulse ox 99%. GENERAL: Intubated, sedated on ventilator support. Obese. SKIN: Adequate turgor. HEENT: She has pinkish conjunctivae, anicteric sclerae. NECK: No neck mass, no carotid bruits, no JVD. CHEST: No deformities. LUNGS: Decreased breath sounds. HEART: Normal sinus rhythm. No murmur, no gallops or rubs. ABDOMEN: Globular, soft, nontender, no masses. EXTREMITIES: Positive for edema, no deformities. MEDICATIONS: 01/16/2018 - Reviewed. LABORATORY: 01/16/2018 - White count 7.9, hemoglobin 9.3. Sodium 135, potassium 4.8, chloride 101, carbon dioxide 14, BUN 67, creatinine 4.4, magnesium 2.0, phosphorus 5.0, AST 648, ALT 154, alkaline phosphatase 1279. ASSESSMENT AND PLAN: Acute kidney injury - secondary to a presumed acute tubular necrosis. Urinaly sis still pending. In addition, a renal ultrasound was done on 01/15/2018 which showed no obstructio n. Continue supportive dialysis. My plan is to do a 3-hour hemodialysis. Minimal fluid removal will be done due to the low blood pressure. Her overall prognosis remains poor. Continue supportive care.
[2018-01-16 10:56] LABS: Anisocytosis MODERATE=16-30 cells (100X) (0-5/hpf); Band 8 % (5-11); Eosinophils 2 % (0-10); Hypochromia SLIGHT = 6-15 cells (100X) (0-5/hpf); Lymphocytes 7 % (21-51); MDiff Complete? YES; Monocytes 8 % (0-10); Myelocyte 2 % (0-0); Neutrophil 73 % (42-75); Nucleated RBC 2 % (0); PLT Morphology Comment Appears Adequate; Polychromasia MODERATE = 3-4 cells (100X) (0-2/hpf); Target Cells MODERATE= 6-15 cells (100X) (0-1/hpf)
[2018-01-16 12:19] LABS: Lactic Acid 9.5 mmol/L (0.5-2.2)
[2018-01-16] MEDS ORDERED: ISOVUE-370 76%-LOCM 1 ML ONE (14:08)
--- NOTE | 2018-01-16 14:17 | CT ---
CT CHEST WITH IV CONTRAST: Date: 01/16/18 HISTORY: Stage IV breast cancer, mets to liver. Bilateral mastectomy. FINDINGS: There is mediastinal lymphadenopathy with necrosis of the lymph nodes. There is opacification of the right upper lobe with areas of low density. This may either be due to a necrotic mass or postobstruct genevieve pneumonia with necrosis. A moderate size right pleural effusion is seen with adjacent atelectatic change. A small left pleural effusion is present with adjacent atelectatic changes. There is narrowi ng of the superior vena cava. No pericardial effusion is seen. Upper abdominal tomograms demonstrate numerous liver masses. There are large low density masses in th e spleen. The posterior mass has a complex appearance. Degenerative changes are present in the spine. There are vascular calcifications without evidence of aneurysmal dilatation of the thoracic aorta. E ndotracheal and nasogastric tubes are present. There is edema in the subcutaneous fat of the chest and abdominal wall. IMPRESSION: Findings are consistent with metastatic disease. POS: [facility]
--- NOTE | 2018-01-16 14:20 | PRG ---
DATE OF SERVICE: 01/16/2018 SERVICE: Pulmonary Medicine. INTERVAL HISTORY: Yesterday morning, the patient had multiple episodes of supraventricular tachycardia and atrial fibrillation with RVR. She is unstable. As such, she underwent cardioversion and multiple rounds of adenosine. We were able to get some amiodarone on board, and ever since then, she has been held in a sinus rhythm. That being said, overnight, she stabilized to some extent. She remains in critical condition. She cannot provide additional elements of the history. Both blood cultures are positive for gram positive rods. PHYSICAL EXAMINATION: VITAL SIGNS: Afebrile, pulse 103, blood pressure 107/53, respirations 23, saturation 98% on 31% FiO2 and a PEEP of 5. GENERAL: Patient is intubated and sedated. HEENT: Normocephalic, atraumatic. Sclerae are white, conjunctivae pink. Oral mucosa is moist without lesions. LUNGS: Reduced air entry. Crackles are present. There is no prolonged expiratory phase or rhonchi. HEART: Normal rate and regular. ABDOMEN: Soft, nontender, and nondistended. Bowel sounds are positive. MUSCULOSKELETAL: No cyanosis or clubbing. There is 1+ pitting in the bilateral lower extremities. The upper extremities in phase of 3-4+ pitting. GENITOURINARY: Muro catheter in place. NEUROLOGIC: Grossly nonfocal. LABORATORY DATA: WBC 27.9, hemoglobin 9.3, and platelets 342,000. Neutrophil count and band count are both improving. PTT 95.7. Creatinine 4.40, BUN 67, anion gap 25, bicarbonate 14 and down trending. Lactate has increased to 9.5. AST, ALT, and alkaline phosphatase are all trending upward. Total bilirubin 6.4. Lipase 142. Gram positive rods are growing in 2/2. IMAGIN. Echocardiogram demonstrates 55%-60% ejection fraction. Left ventricular function is overall normal, technically difficult study. No significant valvular abnormalities are identified, however. 2. Ultrasound of the abdomen demonstrates status post cholecystectomy state. The common bile duct falls within the normal limits. Diffusely heterogeneous liver suggestive of multiple metastatic lesions. 3. Renal ultrasound demonstrates no evidence of hydronephrosis. Muro catheter is in a decompressed bladder. Unfortunately, however, the kidneys could not be well visualized. 4. CT of the chest demonstrates large right upper lobe mass. This is causing compression of the right upper lobe bronchus. Endobronchial disease cannot be excluded. That being said, most of the right upper lobe cannot be well visualized. The right middle lobe takeoff and right lower lobe was patent, but there is a dense infiltrate in the right lower lobe consistent with pneumonia. I do not see any obvious pulmonary embolism. Superior vena cava is completely strictured down suggestive of the superior vena cava syndrome. Anasarca state is otherwise identified. There is a pleural effusion on the right and it does not freely layer suggesting there is some element of loculation. There are multiple metastases throughout the liver. The heart appears small without significant dilation in any of the ventricles. No obvious pulmonary embolism is identified. ASSESSMENT: 1. Acute hypoxic respiratory failure. 2. Healthcare-associated pneumonia. 3. Septic shock. 4. Pleural effusion, empyema suspected. 5. Superior vena cava syndrome. 6. Breast cancer, widely metastatic. 7. Shock liver. 8. Multisystem organ dysfunction. 9. Acute kidney injury. DISCUSSION AND PLAN: At this point, I would strongly recommend that we transitioned over to comfort care only. The patient has multiple medical problems that she probably cannot recover from. We can entertain the possibility of putting a superior vena cava stent in. This may allow for a more complete emptying of her upper extremity and neck. That being said, it may be a moot point moving forward. Particularly, if her kidney and liver due do not recover function. We will continue the antibiotics as well as medications directed at increasing her blood pressure. For the time being, we are in a holding pattern. Pulmonary or Critical Care will continue to follow along, but is expected during this hospital stay. CRITICAL CARE TIME: 30 minutes. SHANI
[2018-01-16] MEDS ORDERED: Vancomycin Sliding Scale 1 EACH FS ONE (16:00)
[2018-01-16] MEDS ORDERED: Vancomycin HCl 1.5 GM in Sodium Chloride 0.9% 250 ML 300 ML IVPB SCH (16:00)
[2018-01-16] MEDS ORDERED: Vancomycin HCl 750 MG in Sodium Chloride 0.9% 250 ML 250 ML IVPB SCH ×2 (16:00→23:59)
[2018-01-16] MEDS ORDERED: HOLD VANCOMYCIN FOR LEVEL >20 FS SCH (16:00)
[2018-01-16] MEDS ORDERED: Vancomycin HCl 1.25 GM in Sodium Chloride 0.9% 250 ML 250 ML IVPB SCH (16:00)
[2018-01-16] MEDS ORDERED: Vancomycin HCl 1 GM in Premix Bag 1 BAG IVPB SCH (16:00)
[2018-01-16 16:19] LABS: Vancomycin, Random 15.8 ug/mL (See Comment)
[2018-01-16] MEDS ORDERED: Pancrelipase DR 12000 1 CAP FS PRN (16:25)
[2018-01-16] MEDS ORDERED: Sodium Bicarbonate Tab 325 MG TAB PER TUBE PRN (16:25)
[2018-01-16] MEDS: Amiodarone HCl 450 MG, Admixture Fee 1 EACH in Dextrose 5% in Water 250 ML IVPB SCH (16:27)
[2018-01-16 17:53] VITALS: BMI 44.4
[2018-01-16] MEDS: Heparin 25,000 units/D5W 500 ML IVPB SCH (19:02)
[2018-01-16] MEDS: Famotidine 40 MG/4 ML VIAL SLOW IVP SCH (20:46)
--- NOTE | 2018-01-16 22:18 | CON ---
DATE OF CONSULTATION: 01/16/2018 REASON FOR CONSULTATION: Bacteremia. HISTORY OF PRESENT ILLNESS: A 67-year-old patient who was admitted 2 days ago with respiratory failure associated with metastatic breast cancer. The patient had a mastectomy in 2015 bilateral, it is not clear if she had any adjuvant therapy. The patient was intubated. On the arrival to the emergency room, her pulse 106, respiratory rate 17, O2 sat 88%, BP was 85/59 and the patient was sedated. Neck was supple. Lungs with symmetric clear breath sounds except for the left side, where wheezing and crackles were heard. Heart examination was normal. Abdomen was nontender, soft and no guarding noted. Initial labs demonstrated a white cell count of 16,000 with hemoglobin 10, platelets 384, and 89% neutrophils. PH of 7.35, pCO2 of 31, and pO2 of 285. Sodium 137, potassium 6.7, and creatinine 8.37. Lactate 3.13. AST was 332, ALT 97, bilirubin 5.1, and alkaline phosphatase 1448 with globulin at 3.6. The echocardiogram showed mild tricuspid regurgitation, EF at 60%. Chest x-ray demonstrated ET tube with the tip at the level of the clavicular heads and NG tube in place, opacification of right lung. Left lung appeared clear. Chest CT demonstrated mediastinal lymphadenopathy, necrosis of lymph node, opacification of right upper lobe with areas of low density, either due to necrotic mass or postobstructive pneumonia with necrosis. Moderate-sized right pleural effusion seen and a smaller left-sided pleural effusion. Numerous liver masses were seen. The patient has had 2 sets of blood cultures positive for Corynebacterium species those were obtained from the central line. PAST MEDICAL HISTORY: Hypertension, metastatic breast cancer with prior mastectomy mets mostly to liver and lungs. PAST SURGICAL HISTORY: Cholecystectomy, hysterectomy, and mastectomy. FAMILY HISTORY: Noncontributory. SOCIAL HISTORY: Never a smoker. ALLERGIES: None. CURRENT MEDICATIONS: Inhalers, amiodarone, TPN, famotidine, fentanyl, heparin, Levophed, ondansetron, Zosyn, vancomycin, and sliding scale. PHYSICAL EXAMINATION: VITAL SIGNS: T-max 99.4, blood pressure 120/50, pulse 117, respiratory rate 12 , and O2 sat 87%. SKIN: Shows a right-sided groin hemodialysis catheter. She has ET tube in place and orogastric tube as well as Muro catheter. Output in the Muro minimal, less than 50 mL per day. HEENT: The patient has chemosis which is bilateral. Pupils are regular, constricted. LUNGS: She has diminished breath sounds in the right side compared with left. No wheezing or crackles. CARDIOVASCULAR: S1, S2 with diminished heart sounds. No obvious murmurs, regular rate. ABDOMEN: Moderately distended. No ascites. No obvious organomegaly noted. EXTREMITIES: Warm. She has trace edema. Pulses are 1+ in dorsalis pedis. Plantar responses are indifferent. Cap refill less than 3 seconds. NEUROLOGIC: She is not responsive at this time. LABORATORY AND X-RAY FINDINGS: White cell count is up to 27,000, hemoglobin 9.3 , platelets 343, and bands are 8. Chemistry with latest findings; sodium 135, creatinine 4.40, calcium 7.4, magnesium 2.0, AST 648, bilirubin 6.4, ALT 154, and alkaline phosphatase 1279. ASSESSMENT AND PLAN: 1. Metastatic breast cancer. 2. Respiratory failure, pleural effusions, possible pulmonary embolism. 3. Acute renal failure requiring hemodialysis through a right groin catheter. 4. Corynebacterium species bacteremia, which was detected upon admission. DISCUSSION: Since patient did not have any devices upon admission, it is likely that the Corynebacterium bacteremia reflects a true bacteremia which was community-acquired and not associated with any vascular device. Another evidence that supports that assessment as that the samples were collected at 30 minutes apart which suggests continuous bacteremia. Certain species of Corynebacterium are considered emerging pathogens with many of them with resistant phenotypes particularly C. striatum. In this case, vancomycin should be effective for covering the organism. In addition, the patient is receiving Zosyn for the possibility of pneumonia associated pathogens. The possibility of endocarditis or other focal infectious process including pneumonia secondary to Corynebacterium species is considered Corynebacterium striatum is one of the main most frequent community-acquired pathogens in an immunosuppressed hosts. Evidently, she has a poor overall prognosis, has been made DNR and I would not recommend any changes in management at this point in time. [facility]
[2018-01-16 23:00] LABS: PTT 242.7 SEC (22.9-36.1)
[2018-01-16 23:26] LABS: Vancomycin, Random 17.7 ug/mL (See Comment)
[2018-01-17 01:49] LABS: PTT 148.2 SEC (22.9-36.1)
[2018-01-17] MEDS: Norepinephrine 8 MG in Sodium Chloride 0.9% 250 ML 250 ML IVPB PRN ×5 (02:33→21:11)
--- NOTE | 2018-01-17 02:50 | CON ---
DATE OF CONSULTATION: 01/15/2018 SERVICE: Pulmonary Medicine. REASON FOR CONSULTATION: Septic shock. HISTORY OF PRESENT ILLNESS: Patient is a 67-year-old -[place] female with past medical history significant for end-stage breast cancer. She is widely metastatic. She was in her usual state of health apparently until she was found unconscious by family member. She is able to have a conversation yesterday but apparently on the day of presentation, she was weak. She was ultimately brought to the emergency department after being intubated in an outside facility. We do not have any history on her, essentially otherwise. In the emergency department, they were concerned that she could have had a pulmonary embolism. They also treated her for pneumonia. They gave her 2 L of fluid. She was hypotensive. She was taken to the ICU. Overnight, she seemed improved ever so slightly. That being said, she is anuric. She is awake and able to follow some simple commands on mechanical ventilation. PAST MEDICAL HISTORY: 1. Breast cancer, widely metastatic. 2. Hypertension. 3. Cataracts. 4. Glaucoma. PAST SURGICAL HISTORY: 1. Cholecystectomy. 2. Hysterectomy. 3. Mastectomy. SOCIAL HISTORY: Negative for alcohol, tobacco, or illicit drug use. FAMILY HISTORY: Noncontributory. ALLERGIES: No known drug allergies. MEDICATIONS: List of her inpatient medications were reviewed. Multiple updates were made. REVIEW OF SYSTEMS: This cannot be obtained, as the patient is currently intubated and sedated. PHYSICAL EXAMINATION: VITAL SIGNS: Afebrile, pulse 131, blood pressure 103/59, respirations 25, saturation 98% on 50% FiO2, and a PEEP of 7. HEENT: Normocephalic, atraumatic. Sclerae white. Conjunctiva pink. Oral and nasal mucosa is moist without lesions. LUNGS: Reduced air entry. There is a slightly prolonged expiratory phase. Rhonchi and crackles predominate however. No wheezing. HEART: Normal rate, regular. ABDOMEN: Soft, nontender, nondistended. Bowel sounds are positive. MUSCULOSKELETAL: No cyanosis or clubbing. There is a diffuse anasarca present. EXTREMITIES: She has 4+ pitting throughout. GENITOURINARY: Muro catheter in place. NEUROLOGIC: Grossly nonfocal. LABORATORY DATA: WBC 23.3, hemoglobin 10.5, platelets 402,000. PTT 63. PH of 7.26, pCO2 of 39, pO2 of 285. Creatinine 4.87 and gently down trending, BUN 97. Basic metabolic profile was otherwise unremarkable. Glucose 124. AST 355 and roughly stable. GGT is significantly elevated. Troponins are stable at 0.056. Hepatitis B surface antigen is unremarkable. Blood cultures x2 are negative. IMAGING: Chest x-ray demonstrates stable chest. There is a dense right upper lobe consolidation. There is also right-sided pleural effusion present. to have loculated appearance. Endotracheal tube is in good position. There is an enteric catheter coursing midline below the level of the diaphragm. ASSESSMENT: 1. Septic shock. 2. Acute hypoxic respiratory failure. 3. Cholestatic liver injury. 4. Healthcare-associated pneumonia, suspected. 5. Pulmonary embolism, possible. 6. Pleural effusion. PLAN: We will need to perform a diagnostic thoracentesis to make certain that we are not dealing with an empyema. If we are, large chest tube may need to be placed. She is currently not in a state of health where she can tolerate a thoracotomy. We will also do right upper quadrant ultrasound to make certain that there is no findings consistent with cholecystitis. If so, cholecystostomy drainage may need to be considered, we will continue our empiric antibiotics directed organisms. Once she clears her sepsis profile, we will need to diurese her once again, but for the time being, she is being anuric. This is likely severe acute kidney injury associated with her septic shock state. Dialysis has been initiated, which I agree with. Pulmonary and Critical care will continue to follow along. CRITICAL CARE TIME: 75 minutes. SHANI
--- NOTE | 2018-01-17 03:25 | PRG ---
DATE OF SERVICE: 01/15/2018 SUBJECTIVE: Ms. Barnard is a 67-year-old black female, who was admitted for acute respiratory failur e. She was also noted to be severely hyperkalemic and in acute renal failure. She underwent emergen t hemodialysis due to the hyperkalemia and acute respiratory distress. The patient currently intubat ed. I did discuss with the family about pursuing dialysis. They would like to proceed dialysis unti l they can think about the final plans for the patient. Please note, this patient at one time was on hospice but this was revoked by the nephew and her sister. Currently the patient is on pressor support. She is now more arousable. OBJECTIVE: VITAL SIGNS: Blood pressure is ranging from 92/51 to 122/61, heart rate is 128, respiratory rate 16, and pulse ox 95%. GENERAL: Noted to be arousable, can follow simple commands. Intubated on ventilator support. SKIN: Adequate turgor. HEENT: Pinkish conjunctivae. Anicteric sclerae. NECK: No neck mass. No carotid bruits. No JVD. CHEST: No deformities. LUNGS: Decreased breath sounds. HEART: Normal sinus rhythm. No murmurs, no gallops, no rubs. ABDOMEN: Globular, soft, nontender, no masses. EXTREMITIES: Positive for edema. MEDICATIONS: On 01/15/2018 - reviewed. LABORATORY DATA: On 01/15/2018 - white count 23.3, hemoglobin 10.5. Sodium 138, potassium 4.5, chlo ride 102, carbon dioxide 21, BUN 97, creatinine 4.87, glucose is 124, calcium 8.5, AST 355, ALT 98, a lkaline phosphatase is 1,407, and albumin 2.6. Chest x-ray of 01/15/2018 shows no significant changes. ASSESSMENT AND PLAN: 1. Acute kidney injury. Unclear etiology. Although possible acute tubular necrosis remains with th is patient. We will plan to do another two and half hours of hemodialysis today with this patient. Due to the low blood pressure, no fluid removal will be done.2. Acute respiratory distress/respirato ry failure - patient has a metastatic breast cancer to the lungs. Continue supportive care. 3. Breast cancer with metastasis to the lungs - supportive care. We may need to review possible pal liative care or resume back hospice. However the relatives are not ready to place her on palliative care and/or hospice. For the moment, I agree with current management. Empiric IV antibiotics has be en started. Overall prognosis remains poor.
[2018-01-17 03:54] LABS: ALT (SGPT) 253 U/L (8-55); AST (SGOT) 1104 U/L (5-34); Albumin 2.2 g/dL (3.4-4.8); Alkaline Phosphatase 1147 U/L (40-150); Anion Gap 21 mmol/L (10-20); BUN (Urea Nitrogen) 44 mg/dL (9.8-20.1); Bilirubin, Total 6.9 mg/dL (0.2-1.2); Calc. Creatinine Clearance 34 mL/min (70-130); Calcium 7.3 mg/dL (7.8-10.44); Carbon Dioxide 17 mmol/L (23-31); Chloride 100 mmol/L (98-107); Estimated GFR-MDRD 17; Globulin 3.6 g/dL (2.4-3.5); Glucose 82 mg/dL (80-115); Potassium 4.2 mmol/L (3.5-5.1); Protein, Total 5.8 g/dL (6.0-8.3); Sodium 134 mmol/L (136-145)
[2018-01-17 03:56] LABS: Band 9 % (5-11); Hemoglobin 8.6 g/dL (12.0-16.0); Lymphocytes 9 % (21-51); MDiff Complete? YES; Mean Corpuscular HGB CONC 32.8 g/dL (32.0-36.0); Mean Corpuscular Hemoglobin 28.9 pg (27.0-31.0); Mean Corpuscular Volume 88.2 fl (81.0-99.0); Mean Platelet Volume 7.8 fL (7.4-10.4); Monocytes 7 % (0-10); Neutrophil 75 % (42-75); Nucleated RBC 8 % (0); Platelet Count 321 thou/uL (130-400); Red Blood Cell (RBC) Count 2.98 mill/uL (4.20-5.40); White Blood Cell (WBC) Count 26.9 thou/uL (4.8-10.8)
[2018-01-17] MEDS: Propofol 1,000 MG/100 ML VIAL IV PRN ×3 (04:50→21:29)
[2018-01-17] MEDS: Piperacillin/Tazobactam 2.25 GM in Sodium Chloride 0.9% 100 ML IVPB SCH ×3 (05:48→17:01)
[2018-01-17] MEDS: Sodium Chloride 0.9% 1,000 ML IV SCH (08:58)
--- NOTE | 2018-01-17 09:15 | PDOC.FM ---
- Subjective Subjective: Pt seen at bedside in NAD. No family at bedside this AM. Intubated and sedated. RICHARD overnight, pt continues to be tachycardic. Swelling in all extremities, significantly worse in upper extremities and face. Requiring levophed and vasopressin but ventilator FiO2 just above room air. - Objective MAR Reviewed: Yes Vital Signs & Weight: Vital Signs (12 hours) Temp Pulse Resp BP Pulse Ox 01/17/18 09:10 164 H 141/65 H 01/17/18 08:00 26 H 01/17/18 07:37 98.2 F 169 H 24 H 92 L 01/17/18 07:00 98.2 F 01/17/18 06:47 171 H 82/44 L 01/17/18 06:00 22 H 01/17/18 04:00 98.9 F 17 01/17/18 02:37 102 H 86/46 L 01/17/18 02:00 18 01/17/18 00:00 98.7 F 101 H 20 111/59 L 01/16/18 22:07 149 H 81/45 L 01/16/18 22:00 23 H Weight Admit Weight 124.738 kg Weight 124.738 kg Most Recent Monitor Data Heart Rate from ECG 122 NIBP 141/65 NIBP BP-Mean 83 Respiration from ECG 21 SpO2 78 I&O: 01/16/18 01/17/18 01/18/18 06:59 06:59 06:59 Intake Total 4349 3673.2 0 Output Total 70 30 0 Balance 4279 3643.2 0 Result Diagrams: 01/17/18 03:10 01/17/18 03:10 <Neri Burns - Last Filed: 01/17/18 09:13> - Objective Vital Signs & Weight: Vital Signs (12 hours) Temp Pulse Resp BP Pulse Ox 01/18/18 07:13 98.1 F 149 H 23 H 92 L 01/18/18 07:00 98.1 F 01/18/18 06:52 152 H 97/50 L 01/18/18 06:49 150 H 23 H 92 L 01/18/18 06:00 23 H 01/18/18 04:00 98.6 F 23 H 01/18/18 02:15 147 H 01/18/18 02:00 23 H 01/18/18 00:13 150 H 77/39 L 01/18/18 00:00 98.6 F 24 H 01/17/18 22:30 152 H 01/17/18 22:00 25 H 01/17/18 20:00 98.5 F 159 H 23 H 90 L Weight Admit Weight 124.738 kg Weight 124.738 kg Most Recent Monitor Data Heart Rate from ECG 149 NIBP 97/50 NIBP BP-Mean 70 Respiration from ECG 19 SpO2 98 I&O: 01/17/18 01/18/18 01/19/18 06:59 06:59 06:59 Intake Total 3673.2 3048.3 0 Output Total 30 50 0 Balance 3643.2 2998.3 0 Result Diagrams: 01/18/18 05:53 01/18/18 05:53 <Nitza Ramey - Last Filed: 01/18/18 07:33> Phys Exam - Physical Examination Constitutional: NAD intubated and sedated HEENT: PERRLA 1+ edema to face Respiratory: no wheezing coarse rales BL worse on right Cardiovascular: no significant murmur tachycardic Gastrointestinal: soft, non-tender Musculoskeletal: edema present 3+ upper ext BL, 1-2+ lower ext BL <Neri Burns - Last Filed: 01/17/18 09:13> Dx/Plan (1) Acute respiratory failure with hypoxia Code(s): J96.01 - ACUTE RESPIRATORY FAILURE WITH HYPOXIA Status: Acute (2) SVC syndrome Code(s): I87.1 - COMPRESSION OF VEIN Status: Acute (3) Acute renal failure Status: Acute QualifierTitle: Acute renal failure type: with acute tubular necrosis Qualified Code(s): N17.0 - Acute kidney failure with tubular necrosis (4) Septic shock Code(s): A41.9 - SEPSIS, UNSPECIFIED ORGANISM; R65.21 - SEVERE SEPSIS WITH SEPTIC SHOCK Status: Acute (5) Lactic acidosis Code(s): E87.2 - ACIDOSIS Status: Acute (6) Shock liver Code(s): K72.00 - ACUTE AND SUBACUTE HEPATIC FAILURE WITHOUT COMA Status: Acute (7) Tachycardia Code(s): R00.0 - TACHYCARDIA, UNSPECIFIED Status: Acute (8) Stage IV carcinoma of breast Code(s): C50.919 - MALIGNANT NEOPLASM OF UNSP SITE OF UNSPECIFIED FEMALE BREAST Status: Chronic QualifierTitle: Laterality: right Qualified Code(s): C50.911 - Malignant neoplasm of unspecified site of right female breast - Plan Plan: 1. Acute respiratory failure with hypoxia - intubated and sedated - pulmonology recommendations greatly appreciated - likely secondary to SVC syndrome and possible HCAP 2. Acute renal failure - nephrology on board, recommendations greatly appreciated - no further plan for HD today - resolution of hyperkalemia after initial round of HD - initial UA still uncollected as pt is anuric 3. Septic shock - pt still requiring levophed and vasopression for MAP > 65 - wean as tolerated - initial blood cultures show 2/2 positive for presumptive Corynebacterium. both blood cultures drawn from right fem central line - pt currently on broad spectrum vanc and zosyn, day 4 - ID recommendations greatly appreciated - still no urine sample due to anuria 4. SVC syndrome - based on pt's initial presentation, treated for presumed PE but unable to tolerate CTA chest - based on pt's response to ventilatory support, PE unlikely cause of #1 - with recent worsening of pt's upper extremity and face swelling in contrast to lower extremities and location of metastases, consider SVC syndrome - CT chest showed SVC syndrome and necrotic LN with metastases - stop heparin gtt at this time 5. Lactic acidosis - likely multifactorial, pt had HD yesterday likely resolving 6. Shock liver - likely secondary to #3, continue to trend 7. Tachycardia - pt had SVT on 01/15 and required electrical and chemical cardioversion - currently tachycardic and appears to be SVT on telemetry - family has decided against further cardioversion or treatment of tachycardia 8. Stage IV carcinoma of breast - Request records from Dr. Luna [phone] - likely cause for elevated alkaline phosphatase disposition: Extremely guarded. Family has agreed on DNR status. Palliative care assistance greatly appreciated in coordinating family discussions. Pending family discussions, likely transition to comfort care over next 1-2 days. Specialist recommendations greatly appreciated. Continue to monitor closely. <Neri Burns - Last Filed: 01/17/18 09:13> Attending Addendum - Attending Addendum Date/Time: 01/18/18 [id number] I personally evaluated the patient and discussed the management with Dr. Burns on 01/17/18. I agree with the History, Examination, Assessment and Plan documented above with any addition or exceptions noted below. 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 This has led to multiorgan failure and bacteremia with Corynebacterium. Continue abx, ventilator support, dialysis for now. Palliative care discussing potential transition to comfort care only. <Nitza Ramey - Last Filed: 01/18/18 07:33>
--- NOTE | 2018-01-17 09:44 | PRG ---
DATE OF SERVICE: 01/17/2018 SUBJECTIVE: Ms. Barnard is a 67-year-old black female with known history of metastatic breast cance r and was seen by the Renal Service for her acute kidney injury and hyperkalemia. She underwent hemo dialysis. During the last several days she was having a hard time tolerating her dialysis. She was noted also to be hypotensive and on several pressor support. The family is now leaning towards [facility] care with this patient. PHYSICAL EXAMINATION: VITAL SIGNS: Blood pressure 84/52 with a heart rate of 170, respiratory rate 24, pulse ox 87%. GENERAL: Unresponsive, intubated on ventilator support. SKIN: Adequate turgor. HEENT: She has slightly pale conjunctivae, anicteric sclerae. NECK: No neck mass, no carotid bruits, no JVD. CHEST: No deformities. LUNGS: Decreased breath sounds, no wheezing, no crackles. HEART: Tachycardic, no murmur, no gallops or rubs. ABDOMEN: Globular, soft, nontender. EXTREMITIES: No edema, no deformities. MEDICATIONS: 01/17/2018 - Reviewed. LABORATORY: 01/17/2018 - White count 26.9, hemoglobin 8.6, hematocrit 26.3. Sodium 134, potassium 4 .2, chloride 100, carbon dioxide 17, BUN 44, creatinine 3.25, calcium 7.3, AST 1104, ALT 253. ASSESSMENT AND PLAN: 1. Acute kidney injury - consider the possibility of superimposed ischemic acute tubular necrosis. Due to her hypotension and tachycardia no dialysis will be done with this patient since she is too un stable hemodynamically to be in dialysis. I do agree in considering hospice care for this patient wh o has underlying breast cancer with metastasis. 2. Sepsis, ID following on empiric IV antibiotics. 3. Hypertension, on pressor support. Continue supportive care until the family decides on hospice. Will hold dialysis.
[2018-01-17] MEDS: Amiodarone HCl 450 MG, Admixture Fee 1 EACH in Dextrose 5% in Water 250 ML IVPB SCH (09:48)
--- NOTE | 2018-01-17 12:08 | PRG ---
DATE OF SERVICE: 01/17/2018 SERVICE: Pulmonary Medicine. INTERVAL HISTORY: The patient is doing poorly from a respiratory standpoint. She has been in tachya rrhythmia since yesterday. The patient's family does not want us to cardiovert her again. She canno t provide any additional elements of the history because of encephalopathy. PHYSICAL EXAMINATION: VITAL SIGNS: Afebrile, pulse 164, blood pressure 141/65, respirations 21, saturations 94% on 41% FiO 2 and a PEEP of 5. HEENT: Normocephalic, atraumatic. Sclerae are white, conjunctivae pink. Oral mucosa is moist witho ut lesions. LUNGS: Decent air entry. There is no prolonged expiratory phase. Crackles are present. No wheezin g or rhonchi are appreciated. HEART: Normal rate and regular. ABDOMEN: Distended. Bowel sounds are present. No tenderness, rebound or guarding is appreciated. MUSCULOSKELETAL: No cyanosis or clubbing. She has got trace 1+ pitting in the bilateral lower extre mities. Her bilateral upper extremities and face had 3+ edema. GENITOURINARY: Muro catheter in place. NEUROLOGIC: Grossly nonfocal. LABORATORY DATA: WBC 26.9, hemoglobin 8.6, and platelets 321,000. PTT 73.7. Creatinine 3.25 and do wn trending with dialysis. Anion gap 21, bicarbonate 17. Basic metabolic profile is otherwise unrem arkable. AST and ALT continue to trend upward gently. Total bilirubin 6.9 and stabilizing. [place] bacterium is growing in 2/2. ASSESSMENT: 1. Acute hypoxic respiratory failure. 2. Healthcare-associated pneumonia. 3. Septic shock secondary to Corynebacterium bacteremia. 4. Pleural effusion on the right, empyema, suspected. 5. Superior vena cava syndrome. 6. Breast cancer, widely metastatic with large right upper lobe mass. 7. Shock liver. 8. Multisystem organ dysfunction. 9. Acute kidney injury requiring hemodialysis. DISCUSSION AND PLAN: The patient's family is requesting that we not do any additional cardioversions on her tachyarrhythmia. They are, not however, willing to transition over to comfort care at this t siddharth. We will continue supportive care to the best of our ability. This will include antibiotics, ne bulized medications, steroids, and ventilator support. Ultimately, if her kidney start to improve an d her liver injury resolves and we are successful weaning mechanical ventilator, she will need a supe rior vena cava stent before extubation could be considered. That being said, with her multisystem or nhi dysfunction, is expected during this hospital stay even with the best of supportive care. CRITICAL CARE TIME: 30 minutes.
--- NOTE | 2018-01-17 17:27 | PDOC.EVN ---
Event Note - Event Note Event Note: Family, including patient's sister and nephew, visited pt room. Venessa ( palliative RN) and myself joined family in CCU conference room to discuss patient status and goals of care. Family aware of patient's grave prognosis and overall critical status. Family has had multiple discussions regarding pt's status and her wishes in this type of situation. At this time, family have decided to transition to comfort care, including compassionate extubation. They requested time to discuss and pray amongst themselves and other family members. Palliative care and resident team available for further questions or discussion.
--- NOTE | 2018-01-17 19:00 | PRG ---
DATE OF SERVICE: 01/17/2018 SUBJECTIVE: Ms. Barnard is in the unit intubated and sedated. Apparently family is considering with drawal of care. OBJECTIVE: VITAL SIGNS: The temperature is normal. Blood pressure 107/56, pulse ranging from 103 to 162, bilat eral chemosis, orotracheal intubation, coarse breath sounds. HEART: S1, S2, regular rate. ABDOMEN: Soft, somewhat distended. LABORATORY DATA: White cell count is 26.9, hemoglobin 8.6, platelets 321 with 75% neutrophils, bands at 9, creatinine 3.25, sodium 134, AST 1104, ALT 253, alkaline phosphatase 1147, albumin 2.2, and li pase 142. ASSESSMENT: Metastatic breast cancer to the liver and lungs with corynebacterium bacteremia, probabl y community acquired. I believe this is a true bacteremia rather than contamination of the sample. In view of the proper technique, the factor was drawn from the line and the time at separation betwee n the samples. The patient apparently will have aggressive measures withdrawn depending on further f amily decisions.
[2018-01-17] MEDS: Famotidine 40 MG/4 ML VIAL SLOW IVP SCH (20:37)
[2018-01-18] MEDS: Norepinephrine 8 MG in Sodium Chloride 0.9% 250 ML 250 ML IVPB PRN ×3 (01:30→09:35)
[2018-01-18 06:19] LABS: ALT (SGPT) 341 U/L (8-55); AST (SGOT) 1523 U/L (5-34); Albumin 2.1 g/dL (3.4-4.8); Alkaline Phosphatase 1212 U/L (40-150); Anion Gap 25 mmol/L (10-20); BUN (Urea Nitrogen) 51 mg/dL (9.8-20.1); Bilirubin, Total 7.2 mg/dL (0.2-1.2); Calc. Creatinine Clearance 27 mL/min (70-130); Calcium 7.1 mg/dL (7.8-10.44); Carbon Dioxide 13 mmol/L (23-31); Chloride 99 mmol/L (98-107); Estimated GFR-MDRD 13; Globulin 3.7 g/dL (2.4-3.5); Glucose 63 mg/dL (80-115); Potassium 4.9 mmol/L (3.5-5.1); Protein, Total 5.8 g/dL (6.0-8.3); Sodium 132 mmol/L (136-145)
[2018-01-18] MEDS: Piperacillin/Tazobactam 2.25 GM in Sodium Chloride 0.9% 100 ML IVPB SCH ×2 (06:19)
[2018-01-18] MEDS: Propofol 1,000 MG/100 ML VIAL IV PRN (06:22)
[2018-01-18 06:33] LABS: Band 4 % (5-11); Hemoglobin 8.7 g/dL (12.0-16.0); Lymphocytes 3 % (21-51); MDiff Complete? YES; Mean Corpuscular HGB CONC 33.2 g/dL (32.0-36.0); Mean Corpuscular Hemoglobin 29.3 pg (27.0-31.0); Mean Corpuscular Volume 88.3 fl (81.0-99.0); Mean Platelet Volume 7.8 fL (7.4-10.4); Metamyelocyte 1 % (0-0); Monocytes 14 % (0-10); Myelocyte 3 % (0-0); Neutrophil 75 % (42-75); Nucleated RBC 18 % (0); Platelet Count 318 thou/uL (130-400); Polychromasia SLIGHT = 2-3 cells (100X) (0-2/hpf); Red Blood Cell (RBC) Count 2.97 mill/uL (4.20-5.40); Target Cells SLIGHT = 2-5 cells (100X) (0-1/hpf); White Blood Cell (WBC) Count 22.2 thou/uL (4.8-10.8)
[2018-01-18 07:03] VITALS: TEMP 98.1
[2018-01-18] MEDS: Sodium Chloride 0.9% 1,000 ML IV SCH (08:31)
--- NOTE | 2018-01-18 08:47 | PDOC.FM ---
- Subjective Subjective: Pt seen at bedside in NAD. No family at bedside this AM. Intubated and sedated. RICHARD overnight. Family decided during family meeting yesterday to transition to comfort care measures. - Objective MAR Reviewed: Yes Vital Signs & Weight: Vital Signs (12 hours) Temp Pulse Resp BP Pulse Ox 01/18/18 08:00 24 H 01/18/18 07:13 98.1 F 149 H 23 H 92 L 01/18/18 07:00 98.1 F 01/18/18 06:52 152 H 97/50 L 01/18/18 06:49 150 H 23 H 92 L 01/18/18 06:00 23 H 01/18/18 04:00 98.6 F 23 H 01/18/18 02:15 147 H 01/18/18 02:00 23 H 01/18/18 00:13 150 H 77/39 L 01/18/18 00:00 98.6 F 24 H 01/17/18 22:30 152 H 01/17/18 22:00 25 H Weight Admit Weight 124.738 kg Weight 124.738 kg Most Recent Monitor Data Heart Rate from ECG 147 NIBP 102/29 NIBP BP-Mean 65 Respiration from ECG 11 SpO2 92 I&O: 01/17/18 01/18/18 01/19/18 06:59 06:59 06:59 Intake Total 3673.2 3048.3 0 Output Total 30 50 0 Balance 3643.2 2998.3 0 Result Diagrams: 01/18/18 05:53 01/18/18 05:53 <Neri Burns - Last Filed: 01/18/18 08:42> - Objective Vital Signs & Weight: Vital Signs (12 hours) Temp Pulse Resp BP Pulse Ox 01/18/18 10:00 24 H 01/18/18 08:00 24 H 01/18/18 07:13 98.1 F 149 H 23 H 92 L 01/18/18 07:00 98.1 F 01/18/18 06:52 152 H 97/50 L 01/18/18 06:49 150 H 23 H 92 L 01/18/18 06:00 23 H 01/18/18 04:00 98.6 F 23 H 01/18/18 02:15 147 H 01/18/18 02:00 23 H 01/18/18 00:13 150 H 77/39 L 01/18/18 00:00 98.6 F 24 H Weight Admit Weight 124.738 kg Weight 124.738 kg Most Recent Monitor Data Heart Rate from ECG 100 NIBP 102/29 NIBP BP-Mean 64 Respiration from ECG 23 SpO2 93 I&O: 01/17/18 01/18/18 01/19/18 06:59 06:59 06:59 Intake Total 3673.2 3048.3 0 Output Total 30 50 0 Balance 3643.2 2998.3 0 Result Diagrams: 01/18/18 05:53 01/18/18 05:53 <Nitza Ramey - Last Filed: 01/19/18 08:06> Phys Exam - Physical Examination Constitutional: NAD intubated and sedated HEENT: sclera anicteric 2+ edema face Respiratory: no wheezing coarse rales worse on right Cardiovascular: no significant murmur tachycardic Gastrointestinal: soft distended and edematous Musculoskeletal: edema present 3+ UE BL, 1+ LE <Neri Burns - Last Filed: 01/18/18 08:42> Dx/Plan (1) Acute respiratory failure with hypoxia Code(s): J96.01 - ACUTE RESPIRATORY FAILURE WITH HYPOXIA Status: Acute (2) SVC syndrome Code(s): I87.1 - COMPRESSION OF VEIN Status: Acute (3) Acute renal failure Status: Acute QualifierTitle: Acute renal failure type: with acute tubular necrosis Qualified Code(s): N17.0 - Acute kidney failure with tubular necrosis (4) Septic shock Code(s): A41.9 - SEPSIS, UNSPECIFIED ORGANISM; R65.21 - SEVERE SEPSIS WITH SEPTIC SHOCK Status: Acute (5) Lactic acidosis Code(s): E87.2 - ACIDOSIS Status: Acute (6) Shock liver Code(s): K72.00 - ACUTE AND SUBACUTE HEPATIC FAILURE WITHOUT COMA Status: Acute (7) Tachycardia Code(s): R00.0 - TACHYCARDIA, UNSPECIFIED Status: Acute (8) Stage IV carcinoma of breast Code(s): C50.919 - MALIGNANT NEOPLASM OF UNSP SITE OF UNSPECIFIED FEMALE BREAST Status: Chronic QualifierTitle: Laterality: right Qualified Code(s): C50.911 - Malignant neoplasm of unspecified site of right female breast - Plan Plan: 1. Acute respiratory failure with hypoxia - intubated and sedated - pulmonology recommendations greatly appreciated - likely secondary to SVC syndrome and possible HCAP 2. Acute renal failure - nephrology on board, recommendations greatly appreciated - no further plan for HD today - resolution of hyperkalemia after initial round of HD - initial UA still uncollected as pt is anuric 3. Septic shock - pt still requiring levophed and vasopression for MAP > 65 - wean as tolerated - initial blood cultures show 2/2 positive for presumptive Corynebacterium. both blood cultures drawn from right fem central line - pt currently on broad spectrum vanc and zosyn, day 5 - ID recommendations greatly appreciated - still no urine sample due to anuria 4. SVC syndrome - based on pt's initial presentation, treated for presumed PE but unable to tolerate CTA chest - based on pt's response to ventilatory support, PE unlikely cause of #1 - with recent worsening of pt's upper extremity and face swelling in contrast to lower extremities and location of metastases, consider SVC syndrome - CT chest showed SVC syndrome and necrotic LN with metastases - stopped heparin gtt on 01/17 5. Lactic acidosis - likely multifactorial and resolved s/p HD 6. Shock liver - likely secondary to #3, continue to trend 7. Tachycardia - pt had SVT on 01/15 and required electrical and chemical cardioversion - currently tachycardic and appears to be SVT on telemetry - family has decided against further cardioversion or treatment of tachycardia 8. Stage IV carcinoma of breast - Request records from Dr. Luna [phone] - likely cause for elevated alkaline phosphatase and multi-system organ failure disposition: Extremely guarded. Family has agreed to transition to comfort care measure and compassionate extubation. Will coordinate timing with family this AM. Specialist recommendations greatly appreciated. Palliative care assistance greatly appreciated. Continue to monitor closely. <Neri Burns - Last Filed: 01/18/18 08:42> Attending Addendum - Attending Addendum I personally evaluated the patient and discussed the management with Dr. Burns on 01/18/18. I agree with the History, Examination, Assessment and Plan documented above with any addition or exceptions noted below. Patient continues to decline, with near-absent kidney function, worsening LFTs, and continued need for ventilatory support due to SVC syndrome caused by metastatic breast cancer. Discussed with family yesterday, they would like to consider compassionate extubation today. Awaiting their arrival to discuss plans. <Nitza Ramey - Last Filed: 01/19/18 08:06>
[2018-01-18] MEDS ORDERED: Lorazepam 2 MG/ML VIAL SLOW IVP PRN (10:59)
[2018-01-18] MEDS ORDERED: Morphine 4 MG/ML Carpuject SLOW IVP PRN (10:59)
--- NOTE | 2018-01-18 11:05 | PDOC.EVN ---
Event Note - Event Note Event Note: Family at bedside and have decided on compassionate extubation at this time. Venessa MONTGOMERYN at bedside as well. Will coordinate [place] to visit with patient and family prior to extubation. RT aware of plans for compassionate extubation, orders entered. Orders for current gtt stopped. IV medications ordered for comfort measures.
[2018-01-18] MEDS ORDERED: Morphine 4 MG/ML VIAL SLOW IVP PRN (11:11)
[2018-01-18 11:13] VITALS: BP 85/41
--- NOTE | 2018-01-18 13:41 | DS-2 ---
ATTENDING: Dr. Nitza Ramey RESIDENT: Dr. Neri Burns DATE OF ADMISSION: 01/14/2018 DATE OF : 01/18/2018 TIME OF : 11:35 a.m. CAUSE OF : 1. 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 2. Widely metastatic breast cancer. SECONDARY DIAGNOSES: 1. Acute renal failure secondary to above. 2. Liver failure secondary to above. 3. Septic shock secondary to hospital acquired pneumonia. 4. Corynebacterium bacteremia. HOSPITAL COURSE: The patient is a 67-year-old female with a known history of stage IV widely metastatic breast cancer to the lungs and liver. The patient initially presented as a transfer from an outside facility due to respiratory failure requiring intubation. The patient on presentation was found to be in acute renal and liver failure. The patient was also in septic shock requiring vasopressor support. The patient received emergent dialysis and was medically treated with antibiotics, pressure support and fluid resuscitation. The patient made no significant improvement through her hospital stay. The family was available throughout the patient's hospital stay and honored the patient's wishes to be made DNR and eventually transitioned to comfort care and compassionate extubation. The patient was extubated on the morning of 01/18/2018 and as detailed above. [facility]
--- NOTE | 2018-01-18 18:44 | PRG ---
DATE OF SERVICE: 01/18/2018 SERVICE: Pulmonary Medicine. INTERVAL HISTORY: The patient is doing fine from a respiratory standpoint. Neurologically, and the big picture; however, has not changed. She cannot provide any additional elements of the history. S he is now encephalopathic. PHYSICAL EXAMINATION: VITAL SIGNS: Afebrile, pulse 99, blood pressure 85/41, respirations 18, saturation 95% on 41% FIO2 a nd a PEEP of 5. HEENT: Normocephalic, atraumatic. Sclerae are white, conjunctivae pink. Oral and nasal mucosa is m oist without lesions. LUNGS: Decent air entry. Crackles are present. HEART: Normal rate and regular. ABDOMEN: Soft, nontender, nondistended. Bowel sounds are positive. MUSCULOSKELETAL: No cyanosis or clubbing. There is trace to 1+ pitting in the bilateral lower extre mities. The upper extremities has 4+ pitting throughout. GENITOURINARY: No Muro. NEUROLOGIC: Grossly nonfocal. LABORATORY DATA: WBC 22.9, hemoglobin 8.7, platelets 313,000. Creatinine 4.05, BUN 51. Anion gap 2 5, bicarbonate 13. Basic metabolic profile is otherwise unremarkable. AST, ALT are continuing to tr end upward. Alkaline phosphatase is also going upward. Blood cultures are growing Corynebacterium i n 2/2. ASSESSMENT: 1. Acute hypoxic respiratory failure. 2. Healthcare-associated pneumonia. 3. Septic shock secondary Corynebacterium bacteremia. 4. Pleural effusion on the right, empyema, suspected. 5. Superior vena cava syndrome. 6. Breast cancer, widely metastatic with large right upper lobe mass. 7. Shock liver. 8. Multisystem organ dysfunction. 9. Acute kidney injury, requiring hemodialysis. DISCUSSION AND PLAN: At this point, the patient has elected to transition over to comfort care only. Once the family is assembled, we will proceed with extubation to comfort. In the meantime, I will make a couple of small adjustments to the ventilator in order to optimize comfort for the patient. S he remains a DNI/DNR. is expected during this hospital stay, shortly after extubation occurs. CRITICAL CARE TIME: 30 minutes.
--- NOTE | 2018-03-04 15:14 | EKG ---
Test Reason : Blood Pressure : / mmHG Vent. Rate : 103 BPM Atrial Rate : 103 BPM P-R Int : 138 ms QRS Dur : 064 ms QT Int : 318 ms P-R-T Axes : 062 068 055 degrees QTc Int : 416 ms Sinus tachycardia Otherwise normal ECG Confirmed by OPHELIA WALTERS ([id number]), fan mail editor EVAN NGUYEN ([id number]) on 03/04/2018 3:14:24 PM Referred By: Confirmed By:OPHELIA WALTERS
== END 2018-01-18 11:35 | disposition expired | DRG 871 ==
LOC: ERS 17:38 → CCU 20:23
PROVIDERS: ADMIT Family Medicine; ATTEND Family Medicine
PROC: 5A1945Z Respiratory Ventilation, 24-96 Consecutive Hours (ICD-10-PCS; 2018-01-14)
PROC: 0BH17EZ Insertion of Endotracheal Airway into Trachea, Via Natural or Artificial Opening (ICD-10-PCS; 2018-01-14)
PROC: 5A1D70Z Performance of Urinary Filtration, Intermittent, Less than 6 Hours Per Day (ICD-10-PCS; principal; 2018-01-16)
DX: A41.89 Other specified sepsis (principal); R65.21 Severe sepsis with septic shock; J96.01 Acute respiratory failure with hypoxia; G92 Toxic encephalopathy; K72.00 Acute and subacute hepatic failure without coma; J18.9 Pneumonia, unspecified organism; I26.99 Other pulmonary embolism without acute cor pulmonale; N17.9 Acute kidney failure, unspecified; I87.1 Compression of vein; C78.00 Secondary malignant neoplasm of unspecified lung; C78.7 Secondary malignant neoplasm of liver and intrahepatic bile duct; J90 Pleural effusion, not elsewhere classified; I47.1 Supraventricular tachycardia; Z90.10 Acquired absence of unspecified breast and nipple; C50.919 Malignant neoplasm of unspecified site of unspecified female breast; Z66 Do not resuscitate; I95.9 Hypotension, unspecified; H40.9 Unspecified glaucoma
CPT/HCPCS: 36415; 36416; 36556; 70450; 71045; 71260; 76705; 76770; 80053; 80202; 82330; 82803; 82805; 82977; 83605; 83690; 83735; 83880; 84100; 84484; 85025; 85730; 87340; 90935; 93005; 93306; 94002; 94003; 94640; 94644; 96365; 96375; 96376; 99292; C1752; G0257; J0153; J0282; J0696; J1644; J1815; J2250; J2543; J2704; J3010; J3370; J7050; J7070; J7611; J7620